=== PATIENT | male | born 1975 | race Hispanic/Latino ===

== ENCOUNTER 2022-01-17 13:55 | Outpatient (CLI) | payer BC ==
[~2022-01-17 13:55] MED LIST: Magnevist 469MG/ML 20 ML VIAL ONE
== END 2022-01-17 13:56 | disposition home or self-care (01) ==
LOC: TBSIIMAG 13:55
PROVIDERS: ATTEND Physician Assistant
DX: G44.52 New daily persistent headache (NDPH) (principal); R41.82 Altered mental status, unspecified
CPT/HCPCS: 70553; A9579